=== PATIENT | male | born 1985 | race American Indian/Alaskan Native ===

== ENCOUNTER 2019-03-15 12:29 | Emergency (ER) | payer BC ==
[2019-03-15 13:01] VITALS: BP 184/119
--- NOTE | 2019-03-15 13:01 | Event Note ---
ED Screening Note Date of service: 03/15/19 Time: 13:00 ED Screening Note: 33 y o male presents with cc of right hand arm muscle pain that strated yesterday while he was lifting a box at work This initial assessment/diagnostic orders/clinical plan/treatment(s) is/are subject to change based on patients health status, clinical progression and re- assessment by fellow clinical providers in the ED. Further treatment and workup at subsequent clinical providers discretion. Patient/guardian urged not to elope from the ED as their condition may be serious if not clinically assessed and managed. Initial orders include: Pt presents with a non-medical emergency Examination is normal, Vital sign are stable, Pt BP elevated but no Hx of HTN, most likely secondary to pain Discussed with pt to discuss with Dr Alvarenga for management Pt given information for clinics to follow up with pcp for further treatment and evaluation Also discussed strict return precautions in detail with pt who verbalized understanding
== END 2019-03-15 14:29 | disposition left against medical advice (07) ==
LOC: EDBD → ED 12:29
DX: M79.641 Pain in right hand (principal)
CPT/HCPCS: 99282